=== PATIENT | male | born 1960 | race Caucasian/White ===

== ENCOUNTER 2018-08-21 12:39 | Outpatient (CLI) | payer OTHER ==
--- NOTE | 2018-08-22 10:50 | Diagnostic Imaging Report ---
CYNTHIA ALVAREZ [facility] [address] [facility] [address] [address] Report Submission Date: Aug 21, 2018 2:21:59 PM CDT Patient Study Name: JANICE CORTEZ Date: Aug 21, 2018 12:54:05 PM CDT Modality Type: CT\SR Gender: M Description: MAXILLOFACIAL/SINUSES : 56 Institution: [facility] Physician: CYNTHIA ALVAREZ Examination: CT Sinuses History: ACUTE RECURRENT MAXILLARY SINUSITIS, SINUS PRESSURE/PAIN SINCE MAY 2018 Comparison exams: None available Technique: Axial imaging with sagittal and coronal reconstruction. Findings: Maxillary and right sphenoid sinuses demonstrate scattered mucous thickening - most pronounced involving the right maxillary sinus. Remaining sinuses are clear. No air fluid levels. Ostiomeatal units are patent bilaterally. Minimal septal deviation to the left. Remaining visualized osseous and soft tissue structure within normal limits. Streak artifact from dental hardware. Impression: Bimaxillary and right sphenoid sinus mucus thickening. No air fluid level. Electronically signed on Aug 21, 2018 2:21:59 PM CDT by: Clifton TAYLOR
--- NOTE | 2018-08-22 11:13 | Diagnostic Imaging Report ---
CYNTHIA ALVAREZ [facility] [address] [facility] [address] [address] Report Submission Date: Aug 21, 2018 2:21:59 PM CDT Patient Study Name: JANICE CORTEZ Date: Aug 21, 2018 12:54:05 PM CDT Modality Type: CT\SR Gender: M Description: MAXILLOFACIAL/SINUSES : 56 Institution: [facility] Physician: CYNTHIA ALVAREZ Examination: CT Sinuses History: ACUTE RECURRENT MAXILLARY SINUSITIS, SINUS PRESSURE/PAIN SINCE MAY 2018 Comparison exams: None available Technique: Axial imaging with sagittal and coronal reconstruction. Findings: Maxillary and right sphenoid sinuses demonstrate scattered mucous thickening - most pronounced involving the right maxillary sinus. Remaining sinuses are clear. No air fluid levels. Ostiomeatal units are patent bilaterally. Minimal septal deviation to the left. Remaining visualized osseous and soft tissue structure within normal limits. Streak artifact from dental hardware. Impression: Bimaxillary and right sphenoid sinus mucus thickening. No air fluid level. Electronically signed on Aug 21, 2018 2:21:59 PM CDT by: Clifton TAYLOR
== END 2018-08-21 12:41 ==
LOC: RAD 12:39
PROVIDERS: ATTEND Family Medicine
DX: J01.01 Acute recurrent maxillary sinusitis (principal)
CPT/HCPCS: 70486